=== PATIENT | male | born 1995 | race Two or more races ===

== ENCOUNTER 2020-07-15 10:15 | Emergency (ER) | payer SELFPAY ==
[~2020-07-15] VITALS: Ht 172.7 cm; Wt 77.1 kg
[2020-07-15 10:15] VITALS: BP 110/69
[2020-07-15] MEDS ORDERED: Morgan Lens TOPIC ONE (10:45)
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
--- NOTE | 2020-07-15 10:50 | NUR ---
ED Nurse Note: pt refusing cele lens at this time, states he wants to sleep. ERMD notified
--- NOTE | 2020-07-15 11:20 | NUR ---
ED Nurse Note: pt awake, ambulatory with steady gait, asking for food and something to drink, no c/o pain
[2020-07-15 13:00] VITALS: BP 110/69
--- NOTE | 2020-07-15 13:00 | NUR ---
ER DISCHARGE NOTE: Patient is cleared to be discharged per ERMD, pt is aox4, on room air, with stable vital signs. pt was given dc and prescription instructions, pt was able to verbalize understanding, pt id band removed without complications. pt is able to ambulate with steady gait. pt took all belongings.
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
== END 2020-07-15 13:00 | disposition other institution (70) ==
LOC: EDBD 10:15 → EMR 10:54
DX: F91.9 Conduct disorder, unspecified (principal); F31.9 Bipolar disorder, unspecified; F20.9 Schizophrenia, unspecified
CPT/HCPCS: 99281